=== PATIENT | female | born 1995 | race Two or more races ===

== ENCOUNTER 2019-10-03 12:11 | Emergency (ER) | payer MEDICAID ==
[~2019-10-03] VITALS: Ht 162.6 cm; Wt 104.3 kg
[2019-10-03 12:56] VITALS: BP 102/67
--- NOTE | 2019-10-03 12:57 | NUR ---
ED Nurse Note:pt. came with sore throat and bilateral earache
--- NOTE | 2019-10-03 13:15 | Emergency Room Report ---
History of Present Illness General Chief Complaint: Earache Source: Patient Present Illness HPI 23-year-old female presents to the emergency department complaining of 8 out of 10 severity pain to the bilateral ears with some yellowish drainage x4 days. Patient is also reporting mild sore throat on the right side x2 days. Patient states she is also requesting refill of her sumatriptan as she had a migraine last week that lasted 4 days and she ran out of her medication. She is currently out here visiting from [place]. Patient reports she has been taking ibuprofen to manage fevers and chills. She denies cough con, neck pain/ stiffness, photophobia, body aches or ill contacts. Patient denies significant past medical history. She denies any aggravating or relieving factors at this time. Allergies: Coded Allergies: No Known Allergies (Unverified , 10/03/19) Patient History Past Medical History: see triage record Past Surgical History: none Pertinent Family History: none Last Menstrual Period: 2-23 Now: No Reviewed Nursing Documentation: PMH: Agreed; PSxH: Agreed Nursing Documentation-PMH Past Medical History: No History, Except For Review of Systems All Other Systems: negative except mentioned in HPI Physical Exam Vital Signs Date Time Temp Pulse Resp B/P (MAP) Pulse Ox O2 Delivery O2 Flow Rate FiO2 10/03/19 12:38 98.4 77 20 102/67 (79) 99 Room Air Sp02 EP Interpretation: reviewed, normal General Appearance: no apparent distress, alert, GCS 15, non-toxic Head: normocephalic, atraumatic Eyes: bilateral eye normal inspection, bilateral eye PERRL ENT: hearing grossly normal, normal voice, other - Bilateral ear canals are erythematous and macerated. there is opaqueness of the TM's and scant blood noted in the canals as well. no evidence of TM rupture. Neck: full range of motion Respiratory: chest non-tender, lungs clear, normal breath sounds, speaking full sentences Cardiovascular #1: regular rate, rhythm, no edema Gastrointestinal: normal bowel sounds, non tender, soft Rectal: deferred Genitourinary: normal inspection Musculoskeletal: back normal, normal range of motion, gait/station normal, non- tender Neurologic: alert, motor strength/tone normal, oriented x3, sensory intact, responsive, speech normal Psychiatric: judgement/insight normal Lymphatic: no adenopathy Medical Decision Making PA Attestation Dr. Maloney is my supervising Physician whom patient management has been discussed with. Diagnostic Impression: Primary Impression: Otitis externa of both ears Qualified Codes: H60.503 - Unspecified acute noninfective otitis externa, bilateral Additional Impression: Otalgia of both ears ER Course 23-year-old female presents to the emergency department complaining of 8 out of 10 severity pain to the bilateral ears with some yellowish drainage x4 days. Patient is also reporting mild sore throat on the right side x2 days. Patient states she is also requesting refill of her sumatriptan as she had a migraine last week that lasted 4 days and she ran out of her medication. She is currently out here visiting from [place]. Patient reports she has been taking ibuprofen to manage fevers and chills. She denies cough con, neck pain/ stiffness, photophobia, body aches or ill contacts. Patient denies significant past medical history. She denies any aggravating or relieving factors at this time. Ddx considered but are not limited to OM, OE, mastoiditis, TM perforation, FB, shingles just to name a few. Vital signs: are WNL, pt. is afebrile H&PE are most consistent with otitis Externa ORDERS: none required at this time, the diagnosis is clinical ED INTERVENTIONS: None required at this time. DISCHARGE: At this time pt. is stable for d/c to home. With PO ABX. Will provide printed patient care instructions, and any necessary prescriptions. Care plan and follow up instructions have been discussed with the patient prior to discharge. Last Vital Signs Date Time Temp Pulse Resp B/P (MAP) Pulse Ox O2 Delivery O2 Flow Rate FiO2 10/03/19 12:56 98.4 20 102/67 99 Room Air 10/03/19 12:38 77 Disposition: HOME, SELF-CARE Condition: Stable Patient Instructions: Otitis Externa, [id number] Additional Instructions: Take medications as directed. Follow up with a Primary Care Provider in 3-5 days, even if your symptoms have resolved. Return sooner to ED if new symptoms occur, or current symptoms become worse. - Please note that this Emergency Department Report was dictated using [email or web address] technology software, occasionally this can lead to erroneous entry secondary to interpretation by the dictation equipment. Carrol Vilchis Oct 03, 2019 13:15
[2019-10-03] MEDS ORDERED: TYLENOL EXTRA500 MG ORAL (13:17)
[2019-10-03] MEDS ORDERED: CIPRODEX OTIC7.5 M1 BOTH EARS (13:17)
[2019-10-03] MEDS ORDERED: SUMATRIPTAN SUC25 MG PO (13:17)
[2019-10-03 13:30] VITALS: BP 102/67
--- NOTE | 2019-10-03 13:30 | NUR ---
ER DISCHARGE NOTE: Patient is cleared to be discharged per ERMD, pt is aox4, on room air, with stable vital signs. pt was given dc and prescription instructions, pt was able to verbalize understanding, pt is able to ambulate with steady gait. pt took all belongings.
== END 2019-10-03 13:30 | disposition home or self-care (01) ==
LOC: EMR 13:12
DX: H60.93 Unspecified otitis externa, bilateral (principal); H92.03 Otalgia, bilateral
CPT/HCPCS: 99282